=== PATIENT | female | born 2000 | race Caucasian/White ===

== ENCOUNTER 2018-01-06 18:34 | Emergency (ER) | payer OTHER ==
[2018-01-06] MEDS ORDERED: NS 1,000 ML IV ONE (18:59)
--- NOTE | 2018-01-06 19:03 | EDPHY ---
H & P Stated Complaint: l abd/side pain n/v Time Seen by Provider: 01/06/18 18:40 HPI/ROS: CHIEF COMPLAINT: Left upper quadrant pain HISTORY OF PRESENT ILLNESS: 18-year-old female presents with left upper quadrant pain. Onset of severe waxing and waning left upper quadrant pain this afternoon. Pain is currently mild. Associated with multiple episodes of vomiting. Vomiting tends to occur when the pain is severe. No dysuria or hematuria. On continuous BCP's, does not have menstrual periods. No vaginal discharge. No prior similar episodes. REVIEW OF SYSTEMS: complete 10 point ROS reviewed and is negative except for the noted elements in the HPI - Personal History LMP (Females 10-55): IUD In Place Current Tetanus Diphtheria and Acellular Pertussis (TDAP): Yes - Medical/Surgical History Hx Asthma: No Hx Chronic Respiratory Disease: No Hx Diabetes: No Hx Cardiac Disease: No Hx Renal Disease: No Hx Cirrhosis: No Hx Alcoholism: No Hx HIV/AIDS: No Hx Splenectomy or Spleen Trauma: No Other PMH: denies - Social History Smoking Status: Never smoked - Physical Exam Exam: General Appearance: Alert, pleasant Eyes: Pupils equal and round, no conjunctival pallor ENT, Mouth: Mucous membranes moist Neck: Normal inspection Respiratory: Lungs are clear to auscultation Cardiovascular: Regular rate and rhythm Gastrointestinal: Abdomen is soft, left upper quadrant tenderness Back: No CVA tenderness Neurological: A&O, nonfocal, normal gait Skin: Warm and dry, no rash Extremities: Normal inspection Psychiatric: Mood and affect normal Constitutional: Initial Vital Signs Temperature (C) 37.2 C 01/06/18 18:38 Heart Rate 126 H 01/06/18 18:38 Respiratory Rate 18 01/06/18 18:38 Blood Pressure 106/82 H 01/06/18 18:38 O2 Sat (%) 96 01/06/18 18:38 O2 Delivery Mode Room Air O2 (L/minute) 2 Allergies/Adverse Reactions: hydrocodone Allergy (Verified 01/06/18 18:37) Home Medications: Medication Instructions Recorded OLANZapine 01/06/18 Ondansetron Odt [Zofran Odt 4 mg 4 mg PO Q4 PRN #10 tab 01/06/18 (*)] Tamsulosin HCl [Flomax 0.4 MG (RX)] 0.4 mg PO DAILY #4 cap 01/06/18 Wellbutrin Sr 01/06/18 oxyCODONE/APAP 325 [Percocet 1 tab PO Q4 PRN #15 tab 01/06/18 5325 (*)] Medical Decision Making - Diagnostics Imaging Results: Imaging Impressions Abdomen/Pelvis CT 01/06/18 19:33 Impression: 2.6 x 2 mm proximal left ureteral stone with mild hydronephrosis. Findings and recommendations discussed with Dr. Naty Shafer at 8:24 PM, 01/06. Final report concurs with initial preliminary interpretation. Attention: This examination does not use radiographic contrast, and as such, provides only a limited evaluation of the abdomen, pelvis, and retroperitoneum. If there is further clinical suspicion for pathological conditions, a complete CT evaluation of the abdomen and pelvis utilizing intravenous, oral, and rectal contrast should be considered. Imaging: Discussed imaging studies w/ call center team leader Radiologist, I viewed and interpreted images myself ED Course/Re-evaluation: This patient presents with severe waxing and waning left upper quadrant pain. Concerning for renal colic. Urine test is negative. CT scan of the abdomen pelvis ordered. Urinalysis reveals hematuria, white blood cells 10-15, doubt infection. Urine culture sent. CT scan read by Dr. Shana Higgins reveals a left ureteral calculus. Results discussed with the patient. She is currently feeling better, minimal pain. Discharge instructions for kidney stone discussed with the patient. Follow up with Urology. Differential Diagnosis: Differential diagnosis includes though it is not limited to appendicitis, cholecystitis, diverticulitis, pyelonephritis, bowel perforation, small bowel obstruction. - Data Points Laboratory Results: Laboratory Results 01/06/18 19:25 01/06/18 01/06/18 19:25 19:10 WBC 11.56 10^3/uL H 10^3/uL (3.80-9.50) RBC 4.87 10^6/uL 10^6/uL (4.18-5.33) Hgb 14.4 g/dL g/dL (12.6-16.3) Hct 41.5 % % (38.0-47.0) MCV 85.2 fL fL (81.5-99.8) MCH 29.6 pg pg (27.9-34.1) MCHC 34.7 g/dL g/dL (32.4-36.7) RDW 12.5 % % (11.5-15.2) Plt Count 333 10^3/uL 10^3/uL (150-400) MPV 8.8 fL fL (8.7-11.7) Neut % (Auto) 70.8 % % (39.3-74.2) Lymph % (Auto) 21.5 % % (15.0-45.0) [place] % (Auto) 6.8 % % (4.5-13.0) Eos % (Auto) 0.3 % L % (0.6-7.6) Baso % (Auto) 0.4 % % (0.3-1.7) Nucleat RBC Rel Count 0.0 % % (0.0-0.2) Absolute Neuts (auto) 8.17 10^3/uL H 10^3/uL (1.70-6.50) Absolute Lymphs (auto) 2.49 10^3/uL 10^3/uL (1.00-3.00) Absolute Monos (auto) 0.79 10^3/uL 10^3/uL (0.30-0.80) Absolute Eos (auto) 0.04 10^3/uL 10^3/uL (0.03-0.40) Absolute Basos (auto) 0.05 10^3/uL 10^3/uL (0.02-0.10) Absolute Nucleated RBC 0.00 10^3/uL 10^3/uL (0-0.01) Immature Gran % 0.2 % % (0.0-1.1) Immature Gran # 0.02 10^3/uL 10^3/uL (0.00-0.10) Urine Color YELLOW Urine Appearance MODERATELY TURBID Urine pH 5.0 (5.0-7.5) Ur Specific [place] 1.016 (1.002-1.030) Urine Protein 1+ H (NEGATIVE) Urine Ketones NEGATIVE (NEGATIVE) Urine Blood 1+ H (NEGATIVE) Urine Nitrate NEGATIVE (NEGATIVE) Urine Bilirubin NEGATIVE (NEGATIVE) Urine Urobilinogen NEGATIVE EU EU (0.2-1.0) Ur Leukocyte Esterase TRACE H (NEGATIVE) Urine RBC 50-182 /hpf H /hpf (0-3) Urine WBC 10-15 /hpf H /hpf (0-3) Ur Epithelial Cells 1+ /lpf /lpf (NONE-1+) Urine Bacteria TRACE /hpf H /hpf (NONE SEEN) Hyaline Casts 5-15 /lpf /lpf (0-1) Urine Mucus 4+ /lpf H /lpf (NONE-1+) Urine Glucose NEGATIVE (NEGATIVE) Medications Given: Discontinued Medications Sodium Chloride (Ns) 1,000 mls @ 0 mls/hr IV EDNOW ONE; Wide Open PRN Reason: Protocol Stop: 01/06/18 19:00 Last Admin: 01/06/18 19:28 Dose: 1,000 mls Ketorolac Tromethamine (Toradol) 15 mg IVP EDNOW ONE Stop: 01/06/18 19:49 Last Admin: 01/06/18 20:16 Dose: 15 mg Point of Care Test Results: Urine Collection Date 01/06/18 Collection Time 19:15 HCG Results Negative Departure - Departure Disposition: Home, Routine, Self-Care Clinical Impression: Renal colic on left side Condition: Good Instructions: Kidney Stones (ED) Additional Instructions: 1. Take Ibuprofen or Motrin 600 mg by mouth three times a day. 2. Percocet as needed for severe pain 3. Flomax as directed 4. Zofran as needed for nausea 5. Strain urine as directed 6. Return to the Emergency Department for intractable pain, fever or vomiting. 7. Followup with the urologist you have been referred to for unimproved symptoms. Referrals: KATHLEEN FANG [Other] - As per Instructions Prescriptions: Ondansetron Odt [Zofran Odt 4 mg (*)] 4 mg PO Q4 PRN #10 tab PRN Reason: Nausea oxyCODONE/APAP 5/325 [Percocet 5/325 (*)] 1 tab PO Q4 PRN #15 tab PRN Reason: pain Tamsulosin HCl [Flomax 0.4 MG (RX)] 0.4 mg PO DAILY #4 cap
[2018-01-06 19:39] LABS: PLATELET COUNT 333 10^3/uL (150-400)
[2018-01-06] MEDS ORDERED: KETOROLAC 15 MG/1 ML SDV IVP ONE (19:48)
[2018-01-06 20:33] VITALS: BP 121/74
== END 2018-01-06 20:43 | disposition home or self-care (01) ==
DX: N13.1 Hydronephrosis with ureteral stricture, not elsewhere classified (principal); E86.9 Volume depletion, unspecified
CPT/HCPCS: 96374; J1885

== ENCOUNTER → 2018-05-29 | Outpatient (CLI) | payer OTHER | LOC: FIMAGING 09:51 | PROVIDERS: ATTEND Urology | DX: Z09 Encounter for follow-up examination after completed treatment for conditions other than malignant neoplasm (principal); N20.0 Calculus of kidney ==